=== PATIENT | male | born 1995 | race Caucasian/White ===

== ENCOUNTER 2019-05-10 15:32 | Inpatient (IN) ==
[2019-05-13] MEDS ORDERED: TUBERSOL ID ONE (15:37)
[2019-05-13] MEDS ORDERED: TYLENOL PO PRN (15:37)
[2019-05-13] MEDS ORDERED: MOTRIN PO PRN (15:37)
[2019-05-13] MEDS ORDERED: DESYREL PO PRN (15:37)
[2019-05-13] MEDS ORDERED: DULCOLAX PR PRN (15:37)
[2019-05-13] MEDS ORDERED: ZOFRAN IV PRN (15:37)
[2019-05-13] MEDS ORDERED: MAALOX PLUS LIQUID PO PRN (15:37)
[2019-05-13] MEDS ORDERED: ZOFRAN ODT PO PRN (15:37)
[2019-05-13] MEDS ORDERED: IMODIUM PO PRN (15:37)
[2019-05-13] MEDS ORDERED: SENOKOT PO PRN (15:37)
[2019-05-13] MEDS ORDERED: ROBAXIN PO PRN (15:37)
[2019-05-13] MEDS ORDERED: SINEMET 25/100 PO PRN (15:37)
[2019-05-13] MEDS ORDERED: LIBRIUM PO PRN (15:37)
[2019-05-13] MEDS ORDERED: BENTYL PO PRN (15:37)
[2019-05-13] MEDS ORDERED: PHENOBARBITAL IV PRN (15:37)
[2019-05-13] MEDS ORDERED: D5W 1,000 ML IV PRN (15:37)
[2019-05-13] MEDS ORDERED: NICODERM PATCH TD PRN (15:37)
[2019-05-13] MEDS ORDERED: ATARAX PO PRN (15:37)
[2019-05-13] MEDS ORDERED: SEROQUEL PO PRN (15:37)
[2019-05-13 17:26] LABS: HEMATOCRIT 34.3 % (42.0-52.0); HEMOGLOBIN 10.7 g/dL (14.0-18.0); MCH 25.6 PG (27-31); MCHC 31.2 g/dL (33-37); MCV 82.1 FL (81-99); MPV 9.9 FL (7.4-10.4); RBC 4.18 XMIL (4.7-6.1); RDW 14.1 % (11.5-14.5); WBC 7.84 X1000 (4.8-10.8)
[2019-05-13 17:34] LABS: INR 1.03
[2019-05-13 17:45] LABS: AMYLASE 39 U/L (20-200); LIPASE 17 U/L (13-60)
[2019-05-13 17:48] LABS: AGAP 13; ALBUMIN 3.8 g/dL (3.5-5.0); ALKALINE PHOSPHATASE 86 U/L (32-122); BUN 7 mg/dL (8-22); CALCIUM 8.9 mg/dL (8.8-10.2); CHLORIDE 101 mmol/L (98-107); COSMO 276; CREATININE 0.5 mg/dL (0.7-1.2); ESTIMATED GFR > 60; GLUCOSE 116 mg/dL (70-104); GOT 12 U/L (10-34); GPT 10 U/L (10-44); POTASSIUM 3.7 mmol/L (3.5-5.1); SODIUM 139 mmol/L (136-145); TCO2 25 mmol/L (25-35); TOTAL PROTEIN 7.5 g/dL (6.3-8.3)
[2019-05-13] MEDS: LIBRIUM PO SCH ×2 (17:48→20:40)
[2019-05-13 18:44] LABS: URINE SOURCE VOIDED
[2019-05-13 18:50] LABS: BILIRUBIN URINE NEGATIVE (NEGATIVE); BLOOD URINE NEGATIVE (NEGATIVE); COLOR YELLOW; GLUCOSE URINE NEGATIVE (NEGATIVE); KETONE URINE NEGATIVE (NEGATIVE); LEUKOCYTES URINE NEGATIVE (NEGATIVE); NITRITE URINE NEGATIVE (NEGATIVE); PROTEIN URINE TRACE mg/dL (NEGATIVE); SP GRAVITY URINE 1.028; TURBIDITY URINE CLEAR (CLEAR); UROBILINOGEN URINE NORMAL (NORMAL)
[2019-05-13 18:51] LABS: UR EPITHELIAL CELLS <10 /HPF (<10); URINE BACTERIA NEGATIVE /HPF; URINE RBC <10 /HPF (<10); URINE WBC <10 /HPF (<10)
[2019-05-13 18:57] LABS: UR AMPHETAMINES QUAL PRESUMPTIVE POSITIVE (NONE DETECT); UR BARBITUATES QUAL NONE DETECTED (NONE DETECT); UR BENZODIAZEPIN QUAL NONE DETECTED (NONE DETECT); UR CANNABINOIDS QUAL PRESUMPTIVE POSITIVE (NONE DETECT); UR COCAINE QUAL NONE DETECTED (NONE DETECT); UR METHADONE QUAL NONE DETECTED (NONE DETECT); UR METHAMPHETAMINE QUAL PRESUMPTIVE POSITIVE (NONE DETECT); UR OPIATES QUAL NONE DETECTED (NONE DETECT); UR OXYCODONE QUAL NONE DETECTED (NONE DETECT); UR PCP QUAL NONE DETECTED (NONE DETECT); UR PROPOXYPHENE QUAL NONE DETECTED (NONE DETECT); UR TCA QUAL NONE DETECTED (NONE DETECT)
[2019-05-14] MEDS: LIBRIUM PO SCH ×4 (02:38→15:16)
[2019-05-14] MEDS: PROTONIX PO SCH (06:32)
--- NOTE | 2019-05-14 07:20 | HISTORY AND PHYSICAL ---
CHIEF COMPLAINT: Nausea and vomiting. HISTORY OF PRESENT ILLNESS: The patient is a 23-year-old male who presented to [facility] secondary to nausea, vomiting, abdominal pain, myalgias, paresthesias, paroxysmal sweating. He states he has been abusing opiates. He has been trying to stop. He has been on Suboxone in the past but has also abused Subutex. SOCIAL HISTORY: The patient is single. He is unemployed. Lives at home in [place]. PAST MEDICAL HISTORY: Chronic anxiety, depression, and history of cellulitis due to injections. MEDICATIONS: No current medications. ALLERGIES: None. REVIEW OF SYSTEMS: CINA score is 13 secondary to nausea, vomiting, diarrhea, cramping, paresthesias, paroxysmal sweating. He has been restless, yawning, unable to sit still. He does have moderate tremors with arms extended. He has been unable to sit still. Denies chest pain or palpitations. Denies dysuria, frequency, urgency, hesitancy, polyuria or polydipsia. Denies skin rashes, weight loss or weight gain. SUBSTANCE ABUSE HISTORY: He had been in treatment in 2011, stayed sober for 3 to 4 months; again in 2016 due to Subutex at [facility] outpatient, stayed sober for 6 months. Started alcohol at 14, currently rarely uses. Started marijuana at 14, continues to use daily. Started meth at 18, has been using 1 g IV weekly. Started hallucinogens at 16, it has been greater than 2 years since he last used. Started alcohol at 17, currently he is using Subutex pills by shooting it up, for the past 2-1/2 years. Started smoking at 13, currently smokes half pack a day. Started synthetic marijuana at 17, has not used since. FAMILY HISTORY: Noncontributory. PHYSICAL EXAMINATION: VITAL SIGNS: Reviewed and stable. GENERAL: The patient is awake, alert, and oriented. Currently in no respiratory distress. HEENT: Normocephalic. NECK: Supple. CARDIOVASCULAR: Regular rate. CHEST: Clear. ABDOMEN: Soft. EXTREMITIES: Moves all extremities. NEUROLOGIC: No focal neurologic changes. SKIN: Warm and dry. No rashes. ASSESSMENT: 1. Nausea and vomiting. 2. Abdominal pain. 3. Myalgias. 4. Paresthesias. 5. Paroxysmal sweating. 6. Alcohol abuse. 7. Opiate abuse withdrawal and stabilization. 8. Polysubstance use and abuse. PLAN: We are going to continue the patient in the hospital, continue counseling and education, continue to follow, place on Librium. We will use Toradol and Suboxone only as needed. cc: Tin Cyr MD
[2019-05-14] MEDS: THERA M PLUS PO SCH (09:19)
[2019-05-14] MEDS: FOLIC ACID PO SCH (09:19)
[2019-05-14] MEDS: VITAMIN B-1 PO SCH (09:19)
--- NOTE | 2019-05-14 22:32 | PROGRESS NOTE ---
DATE: 05/14/2019 SUBJECTIVE: Patient notes is feeling better OBJECTIVE: Vital Signs: Reviewed. Temperature 98 degrees, pulse 64, respiratory rate 18, BP 106/52. General: Patient is pleasant. HEENT: Normocephalic. Neck: Supple. Cardiovascular: Regular rate. Chest: Clear. Abdomen: Soft. Extremities: Moves all extremities. ASSESSMENT: 1. Nausea and vomiting. 2. Abdominal pain. 3. Myalgias. 4. Paresthesias. 5. Paroxysmal sweating 6. Opiate abuse, withdrawal and stabilization. PLAN: We are going to continue Librium, continue Suboxone only as needed, continue to wean, hopefully to rehab soon. cc: Tin Cyr MD MTDD
[2019-05-15] MEDS: LIBRIUM PO SCH ×4 (00:47→23:22)
[2019-05-15] MEDS: PROTONIX PO SCH (06:28)
[2019-05-15] MEDS: VITAMIN B-1 PO SCH (08:59)
[2019-05-15] MEDS: THERA M PLUS PO SCH (08:59)
[2019-05-15] MEDS: FOLIC ACID PO SCH (08:59)
--- NOTE | 2019-05-15 22:15 | PROGRESS NOTE ---
DATE: 05/15/2019 SUBJECTIVE: Patient notes overall, he is feeling better. Still having some withdrawal symptoms. Still having some nausea, frequent sweating. Still having grave concern that he would use if he were at home. PHYSICAL EXAMINATION: Vital Signs: Reviewed. He is awake, alert, oriented. He is in no current respiratory distress. He is still fidgety and having difficulty concentrating. HEENT: Normocephalic. Neck: Supple. Cardiovascular: Regular rate. Chest: Clear. Abdomen: Soft. Extremities: Moves all extremities. ASSESSMENT: 1. Nausea and vomiting. 2. Abdominal pain. 3. Myalgias. 4. Paresthesias. 5. Paroxysmal sweating. 6. Polysubstance use and abuse. PLAN: We are going to continue patient in the hospital, continue to wean using Librium, Suboxone as needed. Further orders as needed. Continue counseling. cc: Tin Cyr MD
[2019-05-16] MEDS: PROTONIX PO SCH (07:00)
[2019-05-16] MEDS: THERA M PLUS PO SCH (08:40)
[2019-05-16] MEDS: VITAMIN B-1 PO SCH (08:40)
[2019-05-16] MEDS: FOLIC ACID PO SCH (08:40)
[2019-05-16] MEDS: LIBRIUM PO SCH ×2 (08:40→20:42)
[2019-05-17] MEDS: PROTONIX PO SCH (06:22)
[2019-05-17] MEDS: THERA M PLUS PO SCH (09:26)
[2019-05-17] MEDS: LIBRIUM PO SCH (09:26)
[2019-05-17] MEDS: FOLIC ACID PO SCH (09:26)
[2019-05-17] MEDS: VITAMIN B-1 PO SCH (09:26)
--- NOTE | 2019-05-17 10:04 | PROGRESS NOTE ---
DATE: 05/17/2019 SUBJECTIVE: Patient notes he is feeling okay. Muscle aches have improved. Nausea is improved. Denies fevers or chills. PHYSICAL EXAMINATION: Vital Signs: Reviewed. He is afebrile. Pulse is regular. Blood pressure is stable. HEENT: Normocephalic. Neck: Supple. Cardiovascular: Regular rate. Chest: Clear, nonlabored. Abdomen: Soft, nondistended. Extremities: Moves all extremities. ASSESSMENT: 1. Nausea and vomiting, resolved. 2. Abdominal pain, improved. 3. Myalgias, improved. 4. Paresthesias, improved. 5. Polysubstance use and abuse. PLAN: We are going to continue patient in the hospital, continue to wean Librium. Hopefully he can discharge home over the next 1 or 2 days if symptoms resolve. cc: Tin Cyr MD
[2019-05-17 12:04] VITALS: BP 117/66
[2019-05-17] MEDS ORDERED: VIVITROL IM ONE (12:27)
--- NOTE | 2019-05-18 04:04 | DISCHARGE SUMMARY ---
ADMISSION DATE: 05/13/2019 DISCHARGE DATE: 05/17/2019 DISCHARGE DIAGNOSIS: 1. Nausea, vomiting. 2. Abdominal pain. 3. Tremors. 4. Myalgias. 5. Paresthesias. 6. Paroxysmal sweating. 7. Opiate abuse, withdrawal and stabilization. 8. Chronic tobacco abuse. CONSULTATIONS: None. PROCEDURES: None. BRIEF HOSPITAL COURSE: Patient was admitted to the hospital secondary to nausea, vomiting, abdominal pain, myalgias. Placed on Librium taper and counseling. He was weaned down with Librium, Toradol, and other symptomatic medications. On discharge, he is awake, alert and he is currently off all opiates as well as all other narcotics. DISPOSITION: Patient was given 1 dose of Vivitrol in the hospital which he tolerated very well. He will follow up outpatient with his treatment facility of choice. They have a bed in 3 days. He will stay at mother's house until that time. TIME SPENT: Greater than 30 minutes was spent in counseling on date of discharge. Discussed with patient that he needs to avoid all persons, places, situations in which he has been using and abusing in the past. cc: Tin Cyr MD
== END 2019-05-17 15:15 | disposition home or self-care (01) | DRG 392 ==
LOC: P.MEDSURG 05-13 15:49
PROVIDERS: ADMIT Family Medicine; ATTEND Family Medicine